=== PATIENT | female | born 2000 | race Caucasian/White ===

== ENCOUNTER → 2021-05-17 | Outpatient (CLI) | payer OTHER | LOC: M RAD 14:44 | PROVIDERS: ATTEND Obstetrics & Gynecology | DX: O36.8121 Decreased fetal movements, second trimester, fetus 1 (principal) ==

== ENCOUNTER 2021-06-22 17:57 | Emergency (ER) | payer OTHER ==
[~2021-06-22] VITALS: Ht 170.2 cm; Wt 147.7 kg
[2021-06-22] MEDS ORDERED: LIDOCAINE 1% MDV 20ML VIAL SC ONE (19:20)
[2021-06-22 20:14] VITALS: BP 132/64
== END 2021-06-22 20:15 | disposition home or self-care (01) ==
LOC: M ED 17:57
DX: S91.202A Unspecified open wound of left great toe with damage to nail, initial encounter (principal); W22.8XXA Striking against or struck by other objects, initial encounter; Y92.009 Unspecified place in unspecified non-institutional (private) residence as the place of occurrence of the external cause; Y93.9 Activity, unspecified; Y99.9 Unspecified external cause status

== ENCOUNTER 2021-07-05 07:24 | Inpatient (IN) | payer OTHER ==
[2021-07-05] VITALS (16 sets, daily range): BP systolic 80–151; BP diastolic 45–94
[~2021-07-05] VITALS: Ht 170.2 cm; Wt 146.1 kg
[2021-07-05] MEDS ORDERED: PRENTAB9 PO (07:51)
[2021-07-05] MEDS ORDERED: ACET500P3 PO (07:51)
[2021-07-05] MEDS ORDERED: HOME MED LIST COMPLETE! XX SCH (07:55)
[2021-07-05] MEDS ORDERED: LACTATED RINGER'S 1000 ML IV STA (09:36)
[2021-07-05 09:38] LABS: HEMATOCRIT 34.9 % (36.0-47.0); HEMOGLOBIN 11.5 g/dl (12.0-15.5); MEAN CORPUSCULAR HEMOGLOBIN 26.9 pg (27.0-33.0); MEAN CORPUSCULAR VOLUME 81.7 fl (80.0-96.0); PLATELET COUNT, AUTOMATED 355 10^3/uL (150-450); RED BLOOD COUNT 4.27 10^6/uL (4.00-5.40); WHITE BLOOD COUNT 9.3 10^3/uL (4.0-10.0)
[2021-07-05] MEDS ORDERED: LIDOCAINE 1% MDV 20ML VIAL INFIL PRN (09:40)
[2021-07-05] MEDS ORDERED: OXYTOCIN INJ 10 UNITS/ML VIAL (J2590) IV PRN (09:40)
[2021-07-05] MEDS ORDERED: TRANEXAMIC ACID INJection 1,000 MG in NS 100 ML IV PRN (09:40)
[2021-07-05] MEDS ORDERED: CARBOPROST TROMETHAMINE 250 MCG/ML AMP IM PRN (09:40)
[2021-07-05] MEDS ORDERED: METHYLERGONOVINE MALEATE 0.2 MG/ML VIAL (J2210) IM PRN (09:40)
[2021-07-05] MEDS ORDERED: OXYTOCIN DRIP 30 UNITS in IV 1 EA IV PRN ×6 (09:40)
[2021-07-05] MEDS: miSOPROStol 50MCG 1/2 TABLET PO SCH ×3 (11:21→19:46)
[2021-07-05 12:44] LABS: INR 0.91; PROTHROMBIN TIME 12.7 SECONDS (12.7-14.5)
[2021-07-05 13:08] LABS: FREE T4 1.08 NG/DL (0.76-1.46); THYROID STIMULATING HORMONE 1.15 uIU/ML (0.358-3.740)
[2021-07-05] MEDS ORDERED: ACETAMINOPHEN 500 MG TAB PO PRN (22:15)
[2021-07-06] VITALS (39 sets, daily range): BP systolic 109–180; BP diastolic 53–114
[2021-07-06] MEDS: miSOPROStol 50MCG 1/2 TABLET PO SCH ×3 (00:18→08:43)
[2021-07-06] MEDS ORDERED: OXYTOCIN DRIP 30 UNITS in IV 1 EA IV SCH (13:25)
[2021-07-06] MEDS ORDERED: OXYTOCIN 30 UNITS IN 0.9% NaCl 500ML IV BAG (J2590) As Ordered ONE (13:55)
[2021-07-06] MEDS: LR 1,000 ML IV SCH ×2 (14:18→22:28)
[2021-07-06] MEDS ORDERED: REFLB XX ONE (20:48)
[2021-07-06] MEDS ORDERED: FENTANYL 2MCG/ML ROPIVACAINE 0.2% IN 0.9% NACL 100ML IVBAG As Ordered ONE (20:49)
[2021-07-06] MEDS ORDERED: REFRIGERATOR IV KEYS XX PRN (22:05)
[2021-07-06] MEDS ORDERED: LACTATED RINGER'S 1000 ML IV PRN (22:05)
[2021-07-06] MEDS ORDERED: ONDANSETRON 4MG/2ML VIAL IV PRN (22:05)
[2021-07-06] MEDS ORDERED: EPIDURAL/PCA KEYS XX PRN (22:05)
[2021-07-06] MEDS ORDERED: EPIDURAL COMMENT XX SCH (22:05)
[2021-07-06] MEDS ORDERED: ePHEDrine SULFATE 25 MG/5 ML(5MG/ML) SYRINGE IV PRN (22:05)
[2021-07-06] MEDS ORDERED: diphenhydrAMINE 50MG/ML VIAL (J1200) IV PRN (22:05)
[2021-07-06] MEDS ORDERED: NALOXONE INJ 0.4MG/1ML VIAL (J2310 PER 1MG) IV PRN (22:05)
[2021-07-06] MEDS: FENTANYL/ROPIVACAINE/NACL BAG 100 ML EPIDURAL SCH (22:16)
[2021-07-07] VITALS (31 sets, daily range): BP systolic 116–146; BP diastolic 58–90
[2021-07-07] MEDS ORDERED: REFLB XX ONE (05:41)
[2021-07-07] MEDS: FENTANYL/ROPIVACAINE/NACL BAG 100 ML EPIDURAL SCH (05:45)
[2021-07-07] MEDS: LR 1,000 ML IV SCH (06:11)
[2021-07-07 12:04] LABS: DRVV SCREEN 38.9 SEC
[2021-07-07] MEDS ORDERED: DIBUCAINE 1% OINTMENT 30GM TOP PRN (12:30)
[2021-07-07] MEDS ORDERED: MEASLES,MUMPS,RUBELLA VACCINE INJ (MMR-II) (90707) SC SCH (12:30)
[2021-07-07] MEDS ORDERED: ONDANSETRON 4MG/2ML VIAL IV PRN (12:30)
[2021-07-07] MEDS ORDERED: ACETAMINOPHEN 500 MG TAB PO PRN (12:30)
[2021-07-07] MEDS ORDERED: RHOGAM 300 MCG (1500 IU) INJ (J2790) IM SCH (12:30)
[2021-07-07] MEDS ORDERED: METHYLERGONOVINE MALEATE 0.2 MG TAB PO PRN (12:30)
[2021-07-07] MEDS ORDERED: ANUSOL HC CREAM 30GM TOP PRN (12:30)
[2021-07-07] MEDS ORDERED: OXYTOCIN DRIP 30 UNITS in IV 1 EA IV SCH ×4 (12:30)
[2021-07-07] MEDS ORDERED: ACETAMINOPHEN TAB 650MG DOSE (2X325MG) PO PRN (12:30)
[2021-07-07] MEDS ORDERED: IBUPROFEN 600MG TAB PO PRN (12:30)
[2021-07-07] MEDS ORDERED: LR 1,000 ML IV SCH (12:30)
[2021-07-07] MEDS ORDERED: IBUPROFEN 800 MG TAB PO PRN (12:30)
[2021-07-07] MEDS ORDERED: OXYTOCIN 30 UNITS IN 0.9% NaCl 500ML IV BAG (J2590) As Ordered ONE (12:45)
[2021-07-07] MEDS ORDERED: DOCUSATE SODIUM 100MG CAPSULE PO SCH (21:00)
[2021-07-08] MEDS ORDERED: PRENATAL VITAMINS CHEWABLE TABLET PO SCH (09:00)
[2021-07-10 19:07] LABS: BETA-2 GLYCOPROTEIN I ABY IGA <9 (0-25); BETA-2 GLYCOPROTEIN I ABY IGG <9 (0-20); BETA-2 GLYCOPROTEIN I ABY IGM <9 (0-32); CARDIOLIPIN IGA ANTIBODY <9 APL U/mL (0-11); CARDIOLIPIN IGG ANTIBODY <9 GPL U/mL (0-14); CARDIOLIPIN IGM ANTIBODY <9 MPL U/mL (0-12); CYTOMEGALOVIRUS IgM ANTIBODY <30.0 AU/mL (0.0-29.9); PARVOVIRUS B19 QUANT PCR Negative copies/mL (Negative)
== END 2021-07-07 21:00 | disposition home or self-care (01) | DRG 806 ==
LOC: M LDI 07:24
PROVIDERS: ADMIT Obstetrics & Gynecology; ATTEND Obstetrics & Gynecology
PROC: 3E0P7GC Introduction of Other Therapeutic Substance into Female Reproductive, Via Natural or Artificial Opening (ICD-10-PCS; 2021-07-05)
PROC: 10907ZC Drainage of Amniotic Fluid, Therapeutic from Products of Conception, Via Natural or Artificial Opening (ICD-10-PCS; 2021-07-06)
PROC: 10E0XZZ Delivery of Products of Conception, External Approach (ICD-10-PCS; principal; 2021-07-07)
DX: O36.4XX0 Maternal care for intrauterine death, not applicable or unspecified (principal); Z37.1 Single stillbirth; Z68.43 Body mass index [BMI] 50.0-59.9, adult; Z3A.35 35 weeks gestation of pregnancy; O99.214 Obesity complicating childbirth; E66.01 Morbid (severe) obesity due to excess calories; O24.420 Gestational diabetes mellitus in childbirth, diet controlled; O69.81X0 Labor and delivery complicated by cord around neck, without compression, not applicable or unspecified; O64.5XX0 Obstructed labor due to compound presentation, not applicable or unspecified